=== PATIENT | female | born 1980 | race Caucasian/White ===

== ENCOUNTER 2017-06-20 09:40 | Emergency (ER) | payer OTHER ==
[~2017-06-20] VITALS: Ht 152.4 cm; Wt 61.0 kg
[~2017-06-20 09:40] MED LIST: RTPRO
[2017-06-20 09:50] VITALS: Ht 152.4 cm; Wt 61.0 kg
--- NOTE | 2017-06-20 10:41 | ERD ---
ER Documentation Chief Complaint Date/Time DATE: 06/20/17 TIME: 10:39 Chief Complaint CHEST WALL PAIN X 3 WEEKS, WORSE WHEN LAYING ON LEFT SIDE HPI 36-year-old female otherwise healthy presents with left-sided mid chest pain that has been worse with laying down and intermittent for the past 2 weeks. She describes as a burning sensation, nonradiating, nonexertional. She is asymptomatic at this time. Patient's family history is negative for sudden stroke or , and she is a non-smoker. ROS All systems reviewed and are negative except as per history of present illness. Medications Home Meds Active Scripts Ranitidine Hcl* (Zantac*) 150 Mg Tablet, 150 MG PO AC BREAKFAST Y for EPIGASTRIC PAIN, #30 TAB Prov:ASHLYN HO PA-C 06/20/17 Reported Medications Albuterol Sulfate* (Proventil* Neb) 3 Ml Nebu 09/27/10 Allergies Allergies: Coded Allergies: No Known Allergy (Verified Allergy, Mild, 11/01/10) PMhx/Soc History of Surgery: No Anesthesia Reaction: No Hx Neurological Disorder: No Hx Respiratory Disorders: Yes (asthma) Hx Cardiac Disorders: No Hx Psychiatric Problems: No Hx Miscellaneous Medical Probl: No Hx Alcohol Use: No Hx Substance Use: No Hx Tobacco Use: No Physical Exam Vitals Vital Signs Date Time Temp Pulse Resp B/P Pulse Ox O2 Delivery O2 Flow Rate FiO2 06/20/17 09:50 97.8 68 18 149/84 100 Physical Exam General: Well-developed, well-nourished. The patient appears in no acute distress. HEENT: Head is normocephalic, atraumatic. No scleral icterus. Neck: Supple. Nontender. Lungs: Clear to auscultation. Normal air movement. Heart: Regular rate and rhythm. S1 and S2 are normal. No murmurs, gallops, or rubs. Abdomen: Soft, nontender, nondistended. Bowel sounds are normoactive. Extremities: No clubbing or cyanosis. Normal pulses. Moving extremities x 4. No weakness. Neurologic: Alert and oriented 3. No focal deficits. Skin: Normal turgor. No rash or lesions. Results 24 hrs 12-lead EKG(interpreted by supervising physician): Dr. Bee Rate/Rhythm: Normal Sinus Rhythm, rate of 60 QRS, ST, T-waves: No changes consistent w/ acute ischemia, no intervals, no dysrhythmias, no ectopy Impression: No evidence of ischemia or arrhythmia Chest X-ray 1V Interpreted by me: As well as radiologist Soft Tissue: No acute abnormalities Bones: No acute abnormalities Mediastinum/Cardiac Silhouette/Lungs: No acute abnormalities Procedures/MDM 28-year-old female presents with left-sided chest pain on and off for 2 weeks. Patient's symptoms are likely considered to be reflux related. EKG and chest x- ray are normal. Patient is asymptomatic at this time, this is unlikely an acute pulmonary or cardiac process. Other differentials include costochondritis , pneumonia, dissection, acute coronary syndrome, pulmonary embolus, pneumothorax, pericarditis. Departure Diagnosis: Primary Impression: Chest pain Condition: Good ASHLYN HO PA-C Jun 20, 2017 10:41
--- NOTE | 2017-06-20 10:42 | RADRPT ---
PROCEDURE: Chest Radiograph. CLINICAL INDICATION: Chest pain TECHNIQUE: Single frontal chest radiograph. COMPARISON: Chest radiograph 10/01/2009 FINDINGS: The cardiomediastinal silhouette is within normal limits. No infiltrate or effusion is seen. Th e bones are intact. IMPRESSION: 1. Unremarkable chest radiograph. RPTAT: KK .Gary Morales MD, MD Date Time Electronically viewed and signed by .Gary Morales MD, on 06/20/2017 10:42 .B/
[2017-06-20] MEDS ORDERED: RANI150T9 PO (10:47)
== END 2017-06-20 11:00 | disposition home or self-care (01) ==
LOC: FTE 09:40
DX: R07.89 Other chest pain (principal); J45.909 Unspecified asthma, uncomplicated
CPT/HCPCS: 71010; 93005; Z7502

== ENCOUNTER 2018-08-13 15:05 | Emergency (ER) | END 2018-08-13 17:30 | disposition home or self-care (01) ==